=== PATIENT | female | born 2000 | race Caucasian/White ===

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

== ENCOUNTER 2020-02-02 13:51 | Emergency (ER) | payer MEDICAID ==
--- NOTE | 2020-02-02 14:28 | NUR ---
CALLED OUT NAME IN LOBBY, NO RESPONSE. WALKED OUTSIDE, CALLED OUT NAME, NO RESPONSE
--- NOTE | 2020-02-02 14:38 | NUR ---
CALLED OUT NAME IN LOBBY, NO RESPONSE
--- NOTE | 2020-02-02 14:39 | NUR ---
PATIENT LEFT WITHOUT BEING SEEN BY DR. BALTAZAR. NO FURTHER CARE PROVIDED FOR PATIENT.
== END 2020-02-02 14:31 | disposition left against medical advice (07) ==
LOC: MED 13:51
DX: Z53.21 Procedure and treatment not carried out due to patient leaving prior to being seen by health care provider (principal)

== ENCOUNTER 2020-07-25 10:49 | Emergency (ER) | payer MEDICAID ==
[~2020-07-25] VITALS: Ht 167.6 cm; Wt 54.4 kg
[2020-07-25 10:58] VITALS: BP 117/66
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
[2020-07-25 12:33] LABS: BASOPHILS % (AUTO) 0.8 % (0.0-2.0); EOSINOPHILS # (AUTO) 0.1 K/uL (0-0.4); EOSINOPHILS % (AUTO) 1.2 % (0.0-4.0); HEMATOCRIT 42.3 % (36-48); HEMOGLOBIN 13.8 g/dL (12.0-16.0); LYMPHOCYTES # (AUTO) 1.8 K/uL (2.5-16.5); LYMPHOCYTES % (AUTO) 37.8 % (20.5-51.1); MEAN CORPUSCULAR HEMOGLOBIN 27 pg (27-31); MEAN CORPUSCULAR HGB CONC 33 g/dL (33-37); MEAN CORPUSCULAR VOLUME 81.4 fL (80-94); MONOCYTES # (AUTO) 0.5 K/uL (0.8-1.0); MONOCYTES % (AUTO) 11.1 % (1.7-9.3); NEUTROPHILS # (AUTO) 2.4 K/uL (1.8-7.7); NEUTROPHILS % (AUTO) 49.1 % (42.2-75.2); PLATELET COUNT (AUTO) 252 K/uL (140-450); RED CELL DISTRIBUTION WIDTH 15.9 % (11.6-13.7); WHITE BLOOD COUNT (AUTO) 4.9 K/uL (4.5-11.0)
[2020-07-25 12:47] LABS: ANION GAP 14.7 (8-16); CARBON DIOXIDE 26.4 mmol/L (21-32); CREATININE 0.8 mg/dL (0.6-1.3); POTASSIUM 4.1 mmol/L (3.5-5.1)
[2020-07-25 12:52] LABS: PROTHROMBIN TIME 9.8 secs (10.8-13.4)
[2020-07-25 12:53] LABS: ALBUMIN 4.6 g/dL (3.4-5.0); BILIRUBIN,DIRECT 0.1 mg/dL (0.0-0.3); TOTAL BILIRUBIN 0.5 mg/dL (0.0-1.0)
[2020-07-25 13:36] VITALS: BP 117/66
== END 2020-07-25 13:36 | disposition home or self-care (01) ==
LOC: MED 10:49
DX: N93.8 Other specified abnormal uterine and vaginal bleeding (principal)
CPT/HCPCS: 36415; 80048; 80076; 81002; 81025; 85025; 85610; 99283

== ENCOUNTER 2021-05-14 00:10 | Emergency (ER) | payer MEDICAID ==
[~2021-05-14] VITALS: Ht 157.5 cm; Wt 56.7 kg
[2021-05-14 00:15] VITALS: BP 131/70
--- NOTE | 2021-05-14 00:18 | NUR ---
TO LOBBY A/W BED AMBULATORY
--- NOTE | 2021-05-14 00:51 | NUR ---
PT TAKEN TO BED 4
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
[2021-05-14] MEDS ORDERED: FLUORESCEIN OPTH STRIP 1 MG ONE (02:18)
[2021-05-14] MEDS ORDERED: FLUORESCEIN OPTH STRIP 1 MG OP ONE (02:20)
--- NOTE | 2021-05-14 02:29 | NUR ---
VISUAL ACUITY : OD : UNABLE OS : 20/30-1 OU : 20/50
--- NOTE | 2021-05-14 02:41 | NUR ---
Dr. Doss examining patient.
--- NOTE | 2021-05-14 02:50 | NUR ---
Patient discharged with v/s stable. Written and verbal after care instructions given and explained. Patient verbalized understanding. Ambulatory with steady gait. All questions addressed prior to discharge. Advised to follow up with PMD.
== END 2021-05-14 02:50 | disposition home or self-care (01) ==
LOC: MED 00:10
DX: S05.91XA Unspecified injury of right eye and orbit, initial encounter (principal); F12.90 Cannabis use, unspecified, uncomplicated; Z88.6 Allergy status to analgesic agent; Y04.2XXA Assault by strike against or bumped into by another person, initial encounter; Y93.89 Activity, other specified; Y92.89 Other specified places as the place of occurrence of the external cause; Y99.8 Other external cause status
CPT/HCPCS: 99284